=== PATIENT | male | born 1965 | race Caucasian/White ===

== ENCOUNTER 2020-03-17 02:07 | Observation (INO) ==
[2020-03-17] MEDS ORDERED: Ondansetron ODT 4 MG TAB.RAPDIS SL PRN (03:30)
[2020-03-17] MEDS ORDERED: Naloxone 0.4 MG/ML INJ IVP PRN (03:30)
[2020-03-17] MEDS ORDERED: Morphine Sulfate 2 MG/ML SYRINGE IVP PRN (03:31)
[2020-03-17] MEDS ORDERED: *HR* Heparin 5,000 UNIT/ML VIAL IVP PRN (04:08)
[2020-03-17] MEDS ORDERED: *HR* Heparin 5,000 UNIT/ML VIAL IVP ONE (04:08)
[2020-03-17 06:05] LABS: Hematocrit 39.2 % (37.5-50.1); Hemoglobin 13.4 g/dL (12.9-16.9); Mean Corpuscular HGB Conc 34.2 g/dL (31.6-35.5); Mean Corpuscular Hemoglobin 29.5 pg (28.0-33.3); Mean Corpuscular Volume 86.3 fL (83.0-100.0); Mean Platelet Volume 9.9 fL (9.4-12.4); Platelet Count 259 K/mcL (140-400); Red Blood Count 4.54 M/mcL (4.19-5.50); Red Cell Distribution Width 12.6 % (11.5-14.5); White Blood Count 8.4 K/mcL (4.3-11.1)
[2020-03-17 06:07] LABS: Basophils # 0.1 K/mcL (0.0-0.2); Basophils % 0.6 %; Eosinophils # 0.6 K/mcL (0.0-0.6); Eosinophils % 7.8 %; Hematocrit 39.8 % (37.5-50.1); Hemoglobin 13.3 g/dL (12.9-16.9); Immature Granulocytes % 0.3 % (0-4); Lymphocytes # 2.9 K/mcL (0.6-4.6); Lymphocytes % 36.6 %; Mean Corpuscular HGB Conc 33.4 g/dL (31.6-35.5); Mean Corpuscular Hemoglobin 28.9 pg (28.0-33.3); Mean Corpuscular Volume 86.3 fL (83.0-100.0); Mean Platelet Volume 10.2 fL (9.4-12.4); Monocytes # 0.6 K/mcL (0.0-1.3); Monocytes % 7.7 %; Neutrophils # 3.7 K/mcL (1.6-8.9); Platelet Count 256 K/mcL (140-400); Red Blood Count 4.61 M/mcL (4.19-5.50); Red Cell Distribution Width 12.4 % (11.5-14.5); White Blood Count 7.8 K/mcL (4.3-11.1)
[2020-03-17 06:10] LABS: Prothrombin Time 11.2 Seconds (9.4-12.1)
[2020-03-17 06:19] LABS: BUN/Creatinine Ratio 28 (6-26); Blood Urea Nitrogen 22 mg/dL (6-20); Carbon Dioxide 23 mEq/L (23-29); Chloride 97 mEq/L (98-107); Glucose 100 mg/dL (70-105); Osmolality,Calculated 275 (280-300); Potassium 3.9 mEq/L (3.5-5.1); Sodium 131 mEq/L (136-145); eGFR For African Americans > 60 (> 60); eGFR For Non-African Americans > 60 (> 60)
[2020-03-17 06:27] LABS: Troponin I 0.25 ng/mL (< 0.04)
[2020-03-17 06:31] LABS: Thyroid Stimulating Hormone 8.924 mcIU/mL (0.340-5.600)
[2020-03-17] MEDS: Heparin 25,000 UNIT/250 ML D5W 25,000 UNIT/250 ML IV.SOLN IVC SCH (07:12)
[2020-03-17] MEDS: *HR* Heparin 5,000 UNIT/ML VIAL IVP PRN ×3 (07:14→22:18)
[2020-03-17] MEDS: Gabapentin 300 MG CAPSULE PO SCH ×3 (08:40→20:06)
[2020-03-17] MEDS: Metoprolol XL (24 HR) Succ 50 MG TAB.ER.24H PO SCH (08:40)
[2020-03-17] MEDS: OXcarbazepine 150 MG TABLET PO SCH ×2 (08:40→20:06)
[2020-03-17] MEDS ORDERED: Perflutren Lipid Microsphere 1.3 ML in 0.9 % Sodium Chloride 8.7 ML IVP ONE (13:24)
[2020-03-17 15:20] LABS: Chol/HDL Ratio 6.4 (0-4.9)
[2020-03-18 04:52] LABS: Basophils # 0.1 K/mcL (0.0-0.2); Eosinophils # 0.8 K/mcL (0.0-0.6); Eosinophils % 10.7 %; Hematocrit 40.2 % (37.5-50.1); Hemoglobin 13.8 g/dL (12.9-16.9); Immature Granulocytes % 0.3 % (0-4); Lymphocytes # 2.3 K/mcL (0.6-4.6); Mean Corpuscular HGB Conc 34.3 g/dL (31.6-35.5); Mean Corpuscular Hemoglobin 29.7 pg (28.0-33.3); Mean Corpuscular Volume 86.5 fL (83.0-100.0); Mean Platelet Volume 10.3 fL (9.4-12.4); Monocytes # 0.7 K/mcL (0.0-1.3); Monocytes % 8.4 %; Neutrophils # 3.8 K/mcL (1.6-8.9); Platelet Count 282 K/mcL (140-400); Red Blood Count 4.65 M/mcL (4.19-5.50); Red Cell Distribution Width 12.6 % (11.5-14.5); Segmented Neutrophils % 49.6 %; White Blood Count 7.7 K/mcL (4.3-11.1)
[2020-03-18 05:10] LABS: BUN/Creatinine Ratio 25 (6-26); Blood Urea Nitrogen 23 mg/dL (6-20); Calcium 9.9 mg/dL (8.6-10.3); Carbon Dioxide 26 mEq/L (23-29); Chloride 96 mEq/L (98-107); Glucose 98 mg/dL (70-105); Magnesium 1.7 mg/dL (1.6-2.6); Osmolality,Calculated 278 (280-300); Sodium 132 mEq/L (136-145); eGFR For African Americans > 60 (> 60); eGFR For Non-African Americans > 60 (> 60)
[2020-03-18] MEDS: Heparin 25,000 UNIT/250 ML D5W 25,000 UNIT/250 ML IV.SOLN IVC SCH (05:30)
[2020-03-18] MEDS ORDERED: Regadenoson 0.4 MG/5 ML SYRINGE IVP ONE (06:02)
[2020-03-18] MEDS ORDERED: Levothyroxine 25 MCG TABLET PO SCH (06:30)
[2020-03-18] MEDS: Gabapentin 300 MG CAPSULE PO SCH ×2 (09:42→14:33)
[2020-03-18] MEDS: Metoprolol XL (24 HR) Succ 50 MG TAB.ER.24H PO SCH (09:42)
[2020-03-18 10:22] VITALS: BP 121/71
[2020-03-18] MEDS ORDERED: Aspirin Enteric Coated 81 MG Tablet PO SCH (11:15)
[2020-03-18] MEDS: OXcarbazepine 150 MG TABLET PO SCH (11:19)
== END 2020-03-18 17:48 | disposition home or self-care (01) ==
LOC: 2ANU → SUATTDRO 02:07
PROVIDERS: ADMIT Student in an Organized Health Care Education/Training Program; ATTEND Pharmacist